=== PATIENT | female | born 1995 | race Caucasian/White ===

== ENCOUNTER 2019-11-08 14:02 | Emergency (ER) | payer OTHER ==
[2019-11-08 14:09] VITALS: TEMP 98.1
[2019-11-08] MEDS ORDERED: predniSONE 50 MG TAB PO STA (14:48)
[2019-11-08] MEDS ORDERED: FAMOTIDINE 20 MG TAB PO STA (14:48)
[2019-11-08] MEDS ORDERED: diphenhydrAMINE 50 MG CAP PO STA (14:48)
[2019-11-08] MEDS ORDERED: KETOROLAC 15 MG/ML 1 ML VIAL IM STA (14:48)
--- NOTE | 2019-11-08 15:23 | XR ---
EXAMINATION TYPE: XR toes LT DATE OF EXAM: 11/08/2019 COMPARISON: NONE HISTORY: Pain TECHNIQUE: 3 views of the fourth and fifth ribs are submitted of the left foot FINDINGS: Identified only on the lateral projection is cortical irregularity involving the distal pha lanx of the left fourth digit. Suspect a nondisplaced fracture. IMPRESSION: As above
--- NOTE | 2019-11-08 15:50 | ED ---
Lower Extremity Injury HPI - General Chief Complaint: Extremity Injury, Lower Stated Complaint: Toe Pain-Poss Injury/Poss Bug bite Time Seen by Provider: 11/08/19 14:32 Source: patient Mode of arrival: ambulatory Limitations: no limitations - History of Present Illness Initial Comments: 24-year-old female patient presents to the emergency department today for evaluation of left foot swelling and pain after being stung. Patient states that she had immediate sharp stabbing pain to the foot, she did not see what stung her. States that she now has swelling around the area and burning pain. States she also injured her toe a few days ago and is concerned it may be broken. States the toe has been swollen. Denies numbness or tingling to the foot. She denies any lip, tongue, or throat swelling. Denies any difficulty breathing or wheezing. Denies taking any medication for her symptoms. Patient denies any recent rash, fever, chills, cough, chest pain, abdominal pain, nausea, vomiting, diarrhea, constipation, back pain, numbness, tingling, dizziness, weakness, hematuria, dysuria, urinary urgency, urinary frequency, headache, visual changes, or any other complaints. - Related Data Previous Rx's Medication Instructions Recorded Ibuprofen [Motrin] 600 mg PO Q8HR PRN #30 tab 11/08/19 predniSONE 50 mg PO DAILY #3 tab 11/08/19 Allergies Allergy/AdvReac Type Severity Reaction Status Date / Time No Known Allergies Allergy Verified 11/08/19 14:08 Review of Systems ROS Statement: Those systems with pertinent positive or pertinent negative responses have been documented in the HPI. ROS Other: All systems not noted in ROS Statement are negative. Past Medical History Past Medical History: No Reported History History of Any Multi-Drug Resistant Organisms: None Reported Past Surgical History: Tonsillectomy Past Psychological History: No Psychological Hx Reported Smoking Status: Never smoker Past Alcohol Use History: Rare Past Drug Use History: None Reported General Exam Limitations: no limitations General appearance: alert, in no apparent distress, other (This is a well- developed, well-nourished adult female patient in no acute distress. Vital signs upon presentation are temperature 98.1F, pulse 78, respirations 20, blood pressure 139/84, pulse ox 99% on room air.) Respiratory exam: Present: normal lung sounds bilaterally. Absent: respiratory distress, wheezes, rales, rhonchi, stridor Cardiovascular Exam: Present: regular rate, normal rhythm, normal heart sounds. Absent: systolic murmur, diastolic murmur, rubs, gallop, clicks Extremities exam: Present: full ROM, tenderness (Left fourth toe. Left dorsal foot. ), normal capillary refill, other (There is soft tissue swelling with a central puncture noted to the left dorsal foot, there is erythema. Left fourth toe shows soft tissue swelling, ecchymosis. ). Absent: pedal edema, joint sw elling, calf tenderness Neurological exam: Present: alert, oriented X3, CN II-XII intact Psychiatric exam: Present: normal affect, normal mood Skin exam: Present: warm, dry, intact, normal color. Absent: rash Course Vital Signs 11/08/19 11/08/19 14:05 16:37 Temperature 98.1 F Pulse Rate 78 80 Respiratory 20 17 Rate Blood Pressure 139/84 127/96 O2 Sat by Pulse 99 98 Oximetry Medical Decision Making - Medical Decision Making 24-year-old female patient presents to the emergency department today for evaluation of left fourth toe pain and a insect sting to the left foot. Physical examination did reveal soft tissue swelling, erythema with a central puncture to the dorsal aspect of the left foot. Wound was explored, there is no evidence for a stinger. Patient also had soft tissue swelling and ecchymosis of the left fourth toe. X-ray of the toe was obtained and showed nondisplaced fracture. We did start steroids, Pepcid, and Benadryl over the sting. She is instructed to take ibuprofen and apply cool compresses to the foot. She is currently be given a prescription for prednisone and ibuprofen. She is instructed to follow-up with her primary care physician for recheck in 1-2 days. Return parameters were discussed in detail. They verbalize understanding and agree with this plan. - Radiology Data Radiology results: report reviewed, image reviewed 3 views of the toes on the left foot are obtained. Report was reviewed in its entirety. Impression by Dr. Mccollum shows suspected nondisplaced fracture of the left fourth digit. Disposition Clinical Impression: Fracture of fourth toe, left, closed, Insect sting Disposition: HOME SELF-CARE Condition: Good Instructions (If sedation given, give patient instructions): Toe Fracture (ED), Insect Bite or Sting (ED) Additional Instructions: Apply ice to the foot. Wear post op shoe for comfort and support. Take tylenol and motrin for pain control. Take steroids as directed. Take benadryl every 6 hours as needed. Follow-up with her primary care physician for recheck in 1-2 days Return to the emergency department immediately for any new, worsening, or concerning symptoms. Prescriptions: Ibuprofen [Motrin] 600 mg PO Q8HR PRN #30 tab PRN Reason: Pain predniSONE 50 mg PO DAILY #3 tab Is patient prescribed a controlled substance at d/c from ED?: No Referrals: None,Stated [Primary Care Provider] - 1-2 days Time of Disposition: 15:50
[2019-11-08 16:40] VITALS: BP 127/96; PULSE 80; RESP 17
== END 2019-11-08 16:40 | disposition home or self-care (01) ==
LOC: EC 14:02
DX: S92.532B Displaced fracture of distal phalanx of left lesser toe(s), initial encounter for open fracture (principal); W57.XXXA Bitten or stung by nonvenomous insect and other nonvenomous arthropods, initial encounter
CPT/HCPCS: 73660; 99283; 96372; J1885; J7512